=== PATIENT | female | born 1955 | race Caucasian/White ===

== ENCOUNTER 2020-12-11 04:53 | Emergency (ER) | payer OTHER, SELFPAY ==
[2020-12-11 04:55] VITALS: BP 148/82; PULSE 83; RESP 20; TEMP 36.6; O2SAT 96; BMI 23.6
--- NOTE | 2020-12-11 05:18 | PC.NURSE ---
Wound cleaned using sterile water and hibiclens by MD. Mccormick and lian then placed on wound.
--- NOTE | 2020-12-11 05:20 | [facility].EDWNDL ---
ED Disposition Clinical Impression: Skin tear Disposition: Home, Self-Care Condition on Discharge: Good Instructions: DI for Laceration Repair-Skin Glue Additional Instructions: remove in a couple of days and redress till healed Referrals: Ivonne Kamara MD [Primary Care Provider] - - Critical Care Critical Care Time: No Attestation: On 12/11/20, the high probability of a clinically significant, sudden or life threatening deterioration of the following system(s) required my full and direct attention, intervention and personal management. The time I documented below is in addition to time spent performing reported procedures but includes the following listed in this critical care notation. Medical Decision Making - Medical Records Medical records reviewed: Yes: I reviewed the patient's medical records. - Shane Inquiry Pt receiving controlled substance: No Vital Signs: 12/11/20 04:55 Temperature 97.9 F Temperature Source Oral Pulse Rate [Left Radial] 83 Respiratory Rate 20 Blood Pressure [Right Arm] 148/82 H Blood Pressure Mean [Right Arm] 104 Blood Pressure Source [Right Arm] Automatic Cuff Blood Pressure Position [Right Arm] Sitting 02 Sat by Pulse Oximetry 96 Oxygen Delivery Method Room Air Orders (Tests/Meds): ED MEDICATIONS Discontinued Medications Generic Name Dose Route Start Last Admin Trade Name Freq PRN Reason Stop Dose Admin Tetanus/Reduced Diphtheria/Acell Pertussis 0.5 ml 12/11/20 05:12 12/11/20 05:14 Tet/Diphth/Pert-Adult 0.5ml Syringe IM 12/11/20 05:13 0.5 ml .ONCE ONE Administration Wound/Laceration HPI - General Chief Complaint: Wound/Laceration Stated Complaint: AO 12/11/20 03:40 Laceration right leg Time Seen by Provider: 12/11/20 05:20 Mode of Arrival: Wheelchair Source of Information: Patient, Relative, Medical Record Limitations: No Limitations Description of Symptoms (Recalled from ER Triage Doc. by RN): Pt reports falling when getting up to get a cigarette resulting in a skin tear to RLE. Pt c/o pain to wound. No other complaints reported to staff. - History of Present Illness HPI narrative: skin tear to rt lower ext tonight Onset (ago): hour(s) Extremity Location: Right: lower leg Place: home Patient tetanus UTD: No Context: fall Associated symptoms: none - Related Data Home Medications Medication Instructions Recorded Confirmed Cetirizine HCl 10 mg PO BID 03/12/19 03/12/19 Fluticasone Propionate [Flovent 50 mcg IH BID 03/12/19 03/12/19 Diskus] Fluticasone/Vilanterol [Breo 1 inh IH DAILY 03/12/19 03/12/19 Ellipta 200-25 Mcg INH] Furosemide [Lasix 80mg tab] 80 mg PO DAILY 03/12/19 03/12/19 Ipratropium/Albuterol Sulfate 1 puff IH NEEDED PRN 03/12/19 03/12/19 [Combivent Respimat Inh] Ipratropium/Albuterol Sulfate 3 ml IH QID 03/12/19 03/12/19 [Duoneb 3mL neb] LORazepam [Lorazepam 1mg Tablet] 1 mg PO TID 03/12/19 03/12/19 Metoprolol Succinate 50 mg PO DAILY 03/12/19 03/12/19 Montelukast Sodium [Singulair 10mg 10 mg PO PM 03/12/19 03/12/19 tablet] guaiFENesin [Mucinex 600mg tablet] 600 mg PO BID 03/12/19 03/12/19 Previous Rx's Medication Instructions Recorded levoFLOXacin [Levaquin 500mg 500 mg PO DAILY #10 tab 03/12/19 tab] levoFLOXacin [Levaquin 500mg 500 mg PO DAILY #10 tab 03/12/19 tab] predniSONE [Deltasone 10mg tablet] 10 mg PO DAILY 9 Days #18 tab 03/12/19 predniSONE [Deltasone 10mg tablet] 10 mg PO DAILY 9 Days #18 tab 03/12/19 Allergies Allergy/AdvReac Type Severity Reaction Status Date / Time No Known Allergies Allergy Verified 03/12/19 16:51 H History - Hepatitis A Screen Drug use history?: No High risk sexual behaviors?: No History of sexually transmitted infection?: No Currently employed?: No Childcare worker?: No Do you have indoor plumbing?: Yes Do you have electricity?: Yes Attestation statement:: This patient has been screened for Hepatiti
[2020-12-11 05:27] VITALS: BP 148/82; PULSE 80; RESP 20; TEMP 36.6; O2SAT 97
--- NOTE | 2020-12-11 05:29 | PC.NURSE ---
TDAP consent signed and placed on chart,
== END 2020-12-11 05:29 | disposition home or self-care (01) ==
PROVIDERS: Emergency Provider Emergency Medicine; PCP Nurse Practitioner
DX: S81.811A Laceration without foreign body, right lower leg, initial encounter (principal); W18.00XA Striking against unspecified object with subsequent fall, initial encounter; Y92.019 Unspecified place in single-family (private) house as the place of occurrence of the external cause; Z23 Encounter for immunization; I25.10 Atherosclerotic heart disease of native coronary artery without angina pectoris; J44.9 Chronic obstructive pulmonary disease, unspecified; F17.210 Nicotine dependence, cigarettes, uncomplicated
CPT/HCPCS: 12002; 90471; 90715; 99282